=== PATIENT | female | born 1965 | race Two or more races ===

== ENCOUNTER 2017-01-29 15:51 | Emergency (ER) | payer MEDICAID, OTHER ==
[~2017-01-29] VITALS: Ht 149.9 cm; Wt 81.6 kg
[2017-01-29 16:09] VITALS: BP 137/97
[2017-01-29 16:52] LABS: Basophils # (auto) 0 uL; Basophils % (auto) 0.4 % (0.0-2.0); Eosinophils # (auto) 0.1 uL; Eosinophils % (auto) 0.8 % (0.0-7.0); Hematocrit 42.3 % (36.0-46.0); Hemoglobin 14.7 g/dL (12.2-16.2); Lymphocytes # (auto) 2.2 uL; Lymphocytes % (auto) 28.3 % (10.0-50.0); Mean Corpuscular Hemoglobin 28.1 pg (28.0-32.0); Mean Corpuscular Hgb Conc. 34.8 g/dL (32.0-36.0); Mean Corpuscular Volume 80.9 fL (80.0-100.0); Mean Platelet Volume 10.7 fL (7.4-10.4); Monocytes # (auto) 0.6 uL; Monocytes % (auto) 7.8 % (0.0-12.0); Neutrophils # (auto) 4.8 uL; Neutrophils % (auto) 62.7 % (37.0-80.0); Platelet Count (auto) 226 10^3/uL (140-450); Red Cell Distribution Width 17.6 % (11.6-16.0); White Blood Cell 7.7 10^3/uL (4.4-10.8)
[2017-01-29 17:09] LABS: Albumin 3.3 g/dL (3.4-5.0); Anion Gap 11 (5-15); BUN/Creatinine Ratio 14.5; Blood Urea Nitrogen 11 mg/dL (7-18); Calcium 8.6 mg/dL (8.5-10.1); Carbon Dioxide 24 mmol/L (21-32); Chloride 101 mmol/L (98-107); GFR African American 103 mL/min; GFR Non-African American 85 mL/min; Glucose 336 mg/dL (74-106); Magnesium 1.7 mg/dL (1.6-2.6); Potassium 4.2 mmol/L (3.5-5.1); Sodium 136 mmol/L (136-145)
[2017-01-29 17:19] LABS: Alkaline Phosphatase 128 U/L (45-117); Aspartate Aminotransferase 23 U/L (15-37); Bilirubin, Total 0.3 mg/dL (0.2-1.0); Total Protein 7.5 g/dL (6.4-8.2)
== END 2017-01-29 20:46 | disposition left against medical advice (07) ==
LOC: ER 15:51
DX: R10.11 Right upper quadrant pain (principal); R11.0 Nausea; Z53.21 Procedure and treatment not carried out due to patient leaving prior to being seen by health care provider
CPT/HCPCS: 36415; 80053; 83735; 84484; 85025; 93005

== ENCOUNTER 2017-07-26 21:13 | Emergency (ER) | payer MEDICAID ==
[~2017-07-26] VITALS: Ht 124.5 cm; Wt 86.2 kg
[2017-07-26 21:50] VITALS: BP 134/80
== END 2017-07-26 22:33 | disposition home or self-care (01) ==
LOC: ER 21:13
DX: M25.531 Pain in right wrist (principal); E11.40 Type 2 diabetes mellitus with diabetic neuropathy, unspecified
CPT/HCPCS: 73110

== ENCOUNTER 2017-08-01 11:18 | Emergency (ER) | payer MEDICAID ==
[~2017-08-01] VITALS: Ht 149.9 cm; Wt 88.5 kg
[2017-08-01 11:50] VITALS: BP 125/69
== END 2017-08-01 12:18 | disposition home or self-care (01) ==
LOC: ER 11:18
DX: N76.0 Acute vaginitis (principal); E11.9 Type 2 diabetes mellitus without complications
CPT/HCPCS: 81002